=== PATIENT | female | born 1970 | race Caucasian/White ===

== ENCOUNTER 2016-05-20 15:14 | Inpatient (IN) | payer BC, SELFPAY ==
[~2016-05-20] VITALS: Ht 162.6 cm; Wt 97.5 kg
[2016-05-20 17:58] LABS: HEMOGLOBIN 14.6 gm/dl (12.3-15.3); RED BLOOD COUNT 4.57 M/UL (4.00-5.10); WHITE BLOOD COUNT 14.6 K/UL (4.5-11.0)
[2016-05-20 18:19] LABS: BUN/CREATININE RATIO 22 (0-10)
[2016-05-21 07:12] LABS: HEMOGLOBIN 13.8 gm/dl (12.3-15.3); RED BLOOD COUNT 4.37 M/UL (4.00-5.10); WHITE BLOOD COUNT 12.3 K/UL (4.5-11.0)
[2016-05-21 07:38] LABS: BUN/CREATININE RATIO 30 (0-10)
[2016-05-22 05:33] LABS: HEMOGLOBIN 13.7 gm/dl (12.3-15.3); RED BLOOD COUNT 4.39 M/UL (4.00-5.10); WHITE BLOOD COUNT 11.8 K/UL (4.5-11.0)
[2016-05-22 06:13] LABS: BUN/CREATININE RATIO 18 (0-10)
[2016-05-23 05:35] LABS: HEMOGLOBIN 13.7 gm/dl (12.3-15.3); RED BLOOD COUNT 4.37 M/UL (4.00-5.10); WHITE BLOOD COUNT 11.1 K/UL (4.5-11.0)
[2016-05-23 05:53] LABS: BUN/CREATININE RATIO 23 (0-10)
[2016-05-25 06:27] LABS: HEMOGLOBIN 14.3 gm/dl (12.3-15.3); RED BLOOD COUNT 4.57 M/UL (4.00-5.10); WHITE BLOOD COUNT 9.7 K/UL (4.5-11.0)
[2016-05-26 06:26] LABS: HEMOGLOBIN 13.7 gm/dl (12.3-15.3); RED BLOOD COUNT 4.38 M/UL (4.00-5.10); WHITE BLOOD COUNT 10.1 K/UL (4.5-11.0)
[2016-05-26 07:12] LABS: BUN/CREATININE RATIO 23 (0-10)
[2016-05-26] MEDS ORDERED: INVANZ 1 GM VIAL1 GM IV (12:23)
[2016-05-26] MEDS ORDERED: LEVEMIR100 UNIT/1 SQ (12:24)
[2016-05-26] MEDS ORDERED: NOVOLOG 10100 UNITS1 SQ (12:26)
[2016-05-26] MEDS ORDERED: LORTAB 5-325 M1 EACH PO (12:27)
[2016-05-26] MEDS ORDERED: HABITROL 21 MG P1 EA TD (12:29)
== END 2016-05-26 16:21 | disposition home or self-care (01) | DRG 854 ==
LOC: ER1 15:14 → ZEROF 20:25 → MED SURG 4 20:25
PROVIDERS: Emergency Medicine; Internal Medicine; Physician Assistant; Surgery; ADMIT Internal Medicine
PROC: 0J9C0ZZ Drainage of Pelvic Region Subcutaneous Tissue and Fascia, Open Approach (ICD-10-PCS; principal; 2016-05-22 09:18)
PROC: 05HC33Z Insertion of Infusion Device into Left Basilic Vein, Percutaneous Approach (ICD-10-PCS; 2016-05-25)
DX: A41.9 Sepsis, unspecified organism (principal); L02.214 Cutaneous abscess of groin; L03.314 Cellulitis of groin; E87.2 Acidosis; E11.65 Type 2 diabetes mellitus with hyperglycemia; Z68.36 Body mass index [BMI] 36.0-36.9, adult; F17.210 Nicotine dependence, cigarettes, uncomplicated; E66.9 Obesity, unspecified; L73.2 Hidradenitis suppurativa; Z91.11 Patient's noncompliance with dietary regimen; Z82.49 Family history of ischemic heart disease and other diseases of the circulatory system; Z80.1 Family history of malignant neoplasm of trachea, bronchus and lung
CPT/HCPCS: 36415; 80048; 80053; 80061; 80202; 82962; 83036; 83605; 83735; 84436; 84443; 85025; 85027; 85610; 85730; 87040; 87070; 87077; 87186; 87205; 96372; 96374; 96375; 99284; J1100; J1335; J1815; J1817; J2250; J2543; J3010; J3370; J7030; J7050; J7070; Q9962

== ENCOUNTER → 2016-05-27 | Outpatient (CLI) | payer BC ==
[~2016-05-27] VITALS: Ht 162.6 cm; Wt 97.5 kg
[~2016-05-27] MED LIST: DOXYCYCLINE MO100 MG PO; HABITROL 21 MG P1 EA TD; INVANZ 1 GM VIAL1 GM IV; LEVEMIR100 UNIT/1 SQ; LORTAB 5-325 M1 EACH PO; NORCO 5-325 TA1 EACH PO; NOVOLOG 10100 UNITS1 SQ
== END ==
LOC: OPSV 08:42
DX: Z45.2 Encounter for adjustment and management of vascular access device (principal); L02.91 Cutaneous abscess, unspecified; L03.90 Cellulitis, unspecified
CPT/HCPCS: 96365; J1335; J7050

== ENCOUNTER → 2016-05-28 | Outpatient (CLI) | payer BC ==
[~2016-05-28] VITALS: Ht 162.6 cm; Wt 97.5 kg
== END ==
LOC: OPSV 08:05
DX: L02.91 Cutaneous abscess, unspecified (principal); L03.90 Cellulitis, unspecified
CPT/HCPCS: 96365; J1335; J7050

== ENCOUNTER → 2016-05-29 | Outpatient (CLI) | payer BC ==
[~2016-05-29] VITALS: Ht 162.6 cm; Wt 97.5 kg
== END ==
LOC: OPSV 07:10
DX: L03.90 Cellulitis, unspecified (principal); L02.91 Cutaneous abscess, unspecified
CPT/HCPCS: 96365; J1335; J7050

== ENCOUNTER → 2016-05-30 | Outpatient (CLI) | payer BC ==
[~2016-05-30] VITALS: Ht 162.6 cm; Wt 97.5 kg
== END ==
LOC: OPSV 07:43
DX: L02.91 Cutaneous abscess, unspecified (principal); L03.90 Cellulitis, unspecified
CPT/HCPCS: 96365; J1335; J7050

== ENCOUNTER → 2016-05-31 | Outpatient (CLI) | payer BC | LOC: OPSV 08:38 | DX: L02.91 Cutaneous abscess, unspecified (principal); L03.90 Cellulitis, unspecified | CPT/HCPCS: 96365; J1335; J7050 ==

== ENCOUNTER → 2016-06-01 | Outpatient (CLI) | payer BC ==
[~2016-06-01] VITALS: Ht 162.6 cm; Wt 97.5 kg
== END ==
LOC: OPSV 09:00
DX: L02.91 Cutaneous abscess, unspecified (principal); L03.90 Cellulitis, unspecified
CPT/HCPCS: 96365; J1335; J7050

== ENCOUNTER → 2016-06-02 | Outpatient (CLI) | payer BC | LOC: OPSV 08:36 | DX: L02.91 Cutaneous abscess, unspecified (principal); L03.90 Cellulitis, unspecified | CPT/HCPCS: 96365; J1335; J7050 ==

== ENCOUNTER → 2016-06-03 | Outpatient (CLI) | payer BC ==
[~2016-06-03] VITALS: Ht 162.6 cm; Wt 97.5 kg
== END ==
LOC: OPSV 08:27
DX: L02.91 Cutaneous abscess, unspecified (principal); L03.90 Cellulitis, unspecified
CPT/HCPCS: 96365; J1335; J7050

== ENCOUNTER → 2016-06-04 | Outpatient (CLI) | payer BC ==
[~2016-06-04] VITALS: Ht 162.6 cm; Wt 97.5 kg
== END ==
LOC: OPSV 07:46
DX: Z45.2 Encounter for adjustment and management of vascular access device (principal); L02.91 Cutaneous abscess, unspecified; L03.90 Cellulitis, unspecified
CPT/HCPCS: 96365; J1335; J7050

== ENCOUNTER → 2016-06-05 | Outpatient (CLI) | payer BC ==
[~2016-06-05] VITALS: Ht 162.6 cm; Wt 97.5 kg
== END ==
LOC: OPSV 07:22
DX: Z45.2 Encounter for adjustment and management of vascular access device (principal); L02.91 Cutaneous abscess, unspecified; L03.90 Cellulitis, unspecified
CPT/HCPCS: 96365; J1335; J7050

== ENCOUNTER 2016-07-05 16:12 | Emergency (ER) | payer BC ==
[~2016-07-05 16:12] MED LIST changes: -DOXYCYCLINE MO100 MG PO; -NORCO 5-325 TA1 EACH PO
== END 2016-07-05 18:40 | disposition home or self-care (01) ==
LOC: ER1 16:12
DX: L02.211 Cutaneous abscess of abdominal wall (principal); L03.311 Cellulitis of abdominal wall; E11.9 Type 2 diabetes mellitus without complications; Z90.710 Acquired absence of both cervix and uterus
CPT/HCPCS: 10061; 87070; 87077; 87186; 87205; 99283

== ENCOUNTER 2016-07-07 12:50 | Inpatient (IN) | payer BC ==
[~2016-07-07] VITALS: Ht 162.6 cm; Wt 101.2 kg
[~2016-07-07 12:50] MED LIST changes: -DOXYCYCLINE MO100 MG PO; -NORCO 5-325 TA1 EACH PO
[2016-07-07 18:24] LABS: HEMOGLOBIN 13.8 gm/dl (12.3-15.3); RED BLOOD COUNT 4.44 M/UL (4.00-5.10); WHITE BLOOD COUNT 9.7 K/UL (4.5-11.0)
[2016-07-07 18:44] LABS: BUN/CREATININE RATIO 23 (0-10)
[2016-07-08 05:46] LABS: HEMOGLOBIN 13.9 gm/dl (12.3-15.3); RED BLOOD COUNT 4.52 M/UL (4.00-5.10)
[2016-07-08 05:57] LABS: BUN/CREATININE RATIO 20 (0-10)
[2016-07-08] MEDS ORDERED: DOXYCYCLINE MO100 MG PO (14:56)
[2016-07-08] MEDS ORDERED: NORCO 5-325 TA1 EACH PO (14:57)
== END 2016-07-08 17:04 | disposition home or self-care (01) | DRG 581 ==
LOC: OR 12:50 → MED SURG 4 17:21
PROVIDERS: Physician Assistant; Surgery; ADMIT Internal Medicine
PROC: 0J980ZZ Drainage of Abdomen Subcutaneous Tissue and Fascia, Open Approach (ICD-10-PCS; principal; 2016-07-08 07:45)
DX: L02.211 Cutaneous abscess of abdominal wall (principal); L03.311 Cellulitis of abdominal wall; B95.62 Methicillin resistant Staphylococcus aureus infection as the cause of diseases classified elsewhere; E11.65 Type 2 diabetes mellitus with hyperglycemia; Z79.4 Long term (current) use of insulin; L73.2 Hidradenitis suppurativa; E66.9 Obesity, unspecified; F17.210 Nicotine dependence, cigarettes, uncomplicated; Z87.442 Personal history of urinary calculi
CPT/HCPCS: 36415; 80048; 80053; 82962; 85027; J1335; J1815; J1817; J1885; J2250; J3010; J3370; J7030; J7050; J7070; J7120

== ENCOUNTER → 2016-07-07 | Outpatient (CLI) | payer BC ==
[~2016-07-07] MED LIST changes: +DOXYCYCLINE MO100 MG PO; +NORCO 5-325 TA1 EACH PO
== END ==
LOC: OPSV 07:02
DX: L02.211 Cutaneous abscess of abdominal wall (principal)
CPT/HCPCS: G0463

== ENCOUNTER → 2020-04-20 | Outpatient (CLI) | payer BC, OTHER ==
[~2020-04-20] MED LIST changes: +DOXYCYCLINE MO100 MG PO; +NORCO 5-325 TA1 EACH PO
[2020-04-20 06:27] LABS: HEMOGLOBIN 14.3 gm/dl (12.3-15.3); RED BLOOD COUNT 4.49 M/UL (4.00-5.10); WHITE BLOOD COUNT 14.2 K/UL (4.5-11.0)
[2020-04-20 06:54] LABS: BUN/CREATININE RATIO 26 (0-10)
== END ==
LOC: LAB 05:39
PROVIDERS: Internal Medicine
DX: R80.9 Proteinuria, unspecified (principal); E11.9 Type 2 diabetes mellitus without complications; E78.5 Hyperlipidemia, unspecified; I10 Essential (primary) hypertension; E55.9 Vitamin D deficiency, unspecified; Z79.899 Other long term (current) drug therapy
CPT/HCPCS: 36415; 80053; 80061; 82043; 82570; 83036; 84439; 84443; 85025

== ENCOUNTER → 2020-06-29 | Outpatient (CLI) | payer BC, OTHER ==
[2020-06-29 08:13] LABS: BUN/CREATININE RATIO 27 (0-10)
== END ==
LOC: LAB 07:11
PROVIDERS: Internal Medicine Nephrology
DX: R80.9 Proteinuria, unspecified (principal); E55.9 Vitamin D deficiency, unspecified
CPT/HCPCS: 36415; 80053; 82570; 84156

== ENCOUNTER → 2020-07-01 | Outpatient (CLI) | payer BC, OTHER | LOC: MAMO 12:57 | DX: Z12.31 Encounter for screening mammogram for malignant neoplasm of breast (principal) | CPT/HCPCS: 77063; 77067 ==

== ENCOUNTER → 2020-11-10 | Outpatient (CLI) | payer BC ==
[2020-11-10 07:14] LABS: HEMOGLOBIN 14.5 gm/dl (12.3-15.3); RED BLOOD COUNT 4.53 M/UL (4.00-5.10); WHITE BLOOD COUNT 13.9 K/UL (4.5-11.0)
[2020-11-10 07:31] LABS: BUN/CREATININE RATIO 16 (0-10)
[2020-11-11 10:13] LABS: CREATININE, URINE 35.3 mg/dL (Not Estab.)
== END ==
LOC: LAB 06:35
PROVIDERS: Internal Medicine
DX: Z13.220 Encounter for screening for lipoid disorders (principal); E11.9 Type 2 diabetes mellitus without complications; R80.9 Proteinuria, unspecified; I10 Essential (primary) hypertension; Z79.899 Other long term (current) drug therapy
CPT/HCPCS: 36415; 80053; 80061; 82043; 82570; 83036; 84439; 84443; 85025

== ENCOUNTER → 2020-11-26 | Outpatient (CLI) | payer BC, OTHER ==
[2020-11-26 07:39] LABS: BUN/CREATININE RATIO 25 (0-10)
== END ==
LOC: LAB 06:48
PROVIDERS: Internal Medicine Nephrology
DX: R80.9 Proteinuria, unspecified (principal)
CPT/HCPCS: 80053; 82570; 84156

== ENCOUNTER → 2020-11-30 | Outpatient (CLI) | payer BC | LOC: HEART 5 07:45 | DX: R07.9 Chest pain, unspecified (principal) | CPT/HCPCS: 78452; A9502 ==

== ENCOUNTER → 2021-02-04 | Outpatient (CLI) | payer BC | LOC: OPSV 06:06 | DX: Z20.822 Contact with and (suspected) exposure to COVID-19 (principal) | CPT/HCPCS: U0002 ==

== ENCOUNTER → 2021-08-03 | Outpatient (CLI) | payer BC ==
[2021-08-03 07:09] LABS: HEMOGLOBIN 14.5 gm/dl (12.3-15.3); RED BLOOD COUNT 4.79 M/UL (4.00-5.10); WHITE BLOOD COUNT 12.7 K/UL (4.5-11.0)
[2021-08-03 07:28] LABS: BUN/CREATININE RATIO 27 (0-10)
[2021-08-04 09:15] LABS: CREATININE, URINE 93.5 mg/dL (Not Estab.)
== END ==
LOC: LAB 06:29
PROVIDERS: Internal Medicine
DX: D72.829 Elevated white blood cell count, unspecified (principal); E78.2 Mixed hyperlipidemia; E11.29 Type 2 diabetes mellitus with other diabetic kidney complication; E11.65 Type 2 diabetes mellitus with hyperglycemia; E55.9 Vitamin D deficiency, unspecified; R53.83 Other fatigue
CPT/HCPCS: 36415; 80053; 80061; 82043; 82570; 83036; 85025

== ENCOUNTER → 2021-09-07 | Outpatient (CLI) | payer BC | LOC: EXRD 07:28 → US 07:28 → EXRD 09:45 | DX: R74.8 Abnormal levels of other serum enzymes (principal); K76.0 Fatty (change of) liver, not elsewhere classified; Z90.49 Acquired absence of other specified parts of digestive tract | CPT/HCPCS: 76700 ==